=== PATIENT | male | born 1935 | race African-American/Black ===

== ENCOUNTER 2018-01-19 16:45 | Emergency (ER) | payer MEDICARE ==
[~2018-01-19] VITALS: Ht 177.8 cm; Wt 92.0 kg
[2018-01-19 17:51] LABS: BASOPHILS % 0.4 % (0.0-2.0); HEMOGLOBIN. 12.3 g/dL (14.0-18.0); LYMPHOCYTES % 8.5 % (20.0-50.0); MEAN CORPUSCULAR HEMOGLOBIN 27.4 pg (28.0-32.0); MONOCYTES % 4.9 % (2.0-8.0); NEUTROPHILS % 86.2 % (40.0-76.0); PLATELET 205 x1000/uL (130-400); RED BLOOD CELL COUNT 4.51 mill/uL (4.7-6.1); RED CELL DISTRIBUTION WIDTH 14.5 % (11.6-14.6)
[2018-01-19 18:02] LABS: CHLORIDE 104 mEq/L (98-107)
[2018-01-19 18:30] VITALS: BP 115/69
== END 2018-01-19 18:30 | disposition home or self-care (01) ==
LOC: ER 17:01
DX: E11.649 Type 2 diabetes mellitus with hypoglycemia without coma (principal); J98.11 Atelectasis; Z79.4 Long term (current) use of insulin
CPT/HCPCS: 36415; 71045; 82962; 84484; 93005; 99285